=== PATIENT | male | born 1985 | race Caucasian/White ===

== ENCOUNTER 2018-12-28 10:27 | Emergency (ER) | payer OTHER ==
--- NOTE | 2018-12-28 11:03 | EDM.PDOC ---
ED HPI GENERAL MEDICAL PROBLEM - General Chief Complaint: Upper Extremity Injury/Pain Stated Complaint: R SHOULDER INJURY Time Seen by Provider: 12/28/18 11:02 - History of Present Illness INITIAL COMMENTS - FREE TEXT/NARRATIVE: 33-year-old male presents emergency room with right shoulder pain and suspected dislocation. Patient has history of recurrent right shoulder dislocations. This popped out on him last night and he just does not feel right. The patient was seen at the clinic today had x-rays done and was sent down to the emergency room x-rays actually show fairly decent shoulder alignment irregular little bit of laxity but he is certainly in good position. The patient had extensive shoulder reconstruction in 2000. This was to correct frequent subluxation and dislocation. The patient did well after surgery but over time he started having problems again. Right Shoulder Pain Score (Numeric/FACES): 8 - Related Data Allergies Allergy/AdvReac Type Severity Reaction Status Date / Time tree nut [Pecans] Allergy Airway Verified 12/28/18 10:43 Tightness Home Meds: Home Meds . [No Known Home Meds] 12/28/18 [History] Past Medical History - Past Health History Medical/Surgical History: Denies Medical/Surgical History Social & Family History - Tobacco Use Smoking Status *Q: Never Smoker - Caffeine Use Caffeine Use: Reports: None - Recreational Drug Use Recreational Drug Use: No Review of Systems - Review of Systems Review Of Systems: See Below Constitutional: Reports: No Symptoms Respiratory: Reports: No Symptoms Cardiovascular: Reports: No Symptoms GI/Abdominal: Reports: No Symptoms ED EXAM, GENERAL - Physical Exam Exam: See Below Exam Limited By: No Limitations General Appearance: Alert, No Apparent Distress Respiratory/Chest: No Respiratory Distress, Lungs Clear, Normal Breath Sounds Cardiovascular: Regular Rate, Rhythm, No Edema, No Murmur Extremities: Other (Examination of his right shoulder shows no sulcus sign no bulging areas anteriorly consistent with anterior dislocation did review his x- rays that appear to show good alignment of the shoulders. I did try to manipulate shoulder little bit in the patient cannot fully externally rotate shoulder and he will not allow abduction of the upper arm neurovascular status extremities normal) Course - Vital Signs Last Recorded V/S: Last Vital Signs Temp 37.1 C 12/28/18 10:41 Pulse 65 12/28/18 10:41 Resp 15 12/28/18 10:41 BP 131/95 H 12/28/18 10:41 Pulse Ox 94 L 12/28/18 10:41 - Orders/Labs/Meds Orders: Active Orders 24 hr Category Date Time Status Durable Medical Equipment for Discharge [DME for Oth 12/28/18 11:25 Ordered Discharge] [COMM] Stat - Re-Assessments/Exams Free Text/Narrative Re-Assessment/Exam: 12/28/18 11:[address] Nieves, his office will call shortly with a appointment time the patient will be placed in a sling. 12/28/18 12:13 Dr. Nieves's office did get back to us kindly gave him an appointment for at 9:30 in the morning Departure - Departure Time of Disposition: 12:14 Disposition: Home, Self-Care 01 Clinical Impression: Right shoulder injury Clinical Impression: (Ruled Out): Subluxation of shoulder girdle - Discharge Information Referrals: PCP,None [Primary Care Provider] - Kev Roe MD [Physician] - Forms: ED Department Discharge Additional Instructions: Return to the emergency room with any questions problems or worsening symptoms. Wear the sling at all times.. Follow-up with Dr. Roe today, orthopedic surgeon, at 9:30 in the morning. - My Orders Last 24 Hours: My Active Orders 12/28/18 11:25 Durable Medical Equipment for Discharge [DME for Discharge] [COMM] Stat - Assessment/Plan Last 24 Hours: My Active Orders 12/28/18 11:25 Durable Medical Equipment for Discharge [DME for Discharge] [COMM] Stat
== END 2018-12-28 12:35 | disposition home or self-care (01) ==
LOC: JD.ED 10:27
DX: S49.91XA Unspecified injury of right shoulder and upper arm, initial encounter (principal); Z91.018 Allergy to other foods; X58.XXXA Exposure to other specified factors, initial encounter; Y93.75 Activity, martial arts
CPT/HCPCS: 99282; 99283

== ENCOUNTER 2022-02-08 21:47 | Emergency (ER) | payer MEDICAID, OTHER ==
[2022-02-08] MEDS ORDERED: diphenhydrAMINE 50 MG/ML SDV IM ONE (22:23)
[2022-02-08] MEDS ORDERED: HYDROmorphone 1 MG/ML Syringe IM ONE (22:23)
[2022-02-08] MEDS ORDERED: Ondansetron 4 MG Tab.DIS PO ONE (22:23)
[2022-02-08] MEDS ORDERED: Ketorolac 60 MG/2 ML SDV IM ONE (23:00)
== END 2022-02-09 00:40 | disposition home or self-care (01) ==
LOC: JD.ED 21:47
DX: S09.90XA Unspecified injury of head, initial encounter (principal); Z91.018 Allergy to other foods; W00.0XXA Fall on same level due to ice and snow, initial encounter
CPT/HCPCS: 70450; 96372; 99283; A9270; J1170; J1200; J1885

== ENCOUNTER 2022-09-27 22:40 | Emergency (ER) | payer BC, MEDICAID ==
[2022-09-27] MEDS ORDERED: Morphine 4 MG/ML Syringe IVPUSH ONE (22:56)
[2022-09-27] MEDS ORDERED: Sodium Chloride 0.9% 1,000 ML IV ONE (22:56)
[2022-09-27] MEDS ORDERED: Ondansetron 4 MG/2 ML SDV IVPUSH ONE (22:56)
[2022-09-27 23:12] LABS: BASOPHILS ABSOLUTE AUTO 0.03 K/mm3 (0.01-0.08); BASOPHILS PERCENT AUTO 0.4 % (0.1-1.2); EOSINOPHILS ABSOLUTE AUTO 0.17 K/mm3 (0.04-0.54); HEMATOCRIT 45.7 % (40.1-51.0); HEMOGLOBIN 16.3 gm/dl (13.7-17.5); IMMATURE GRAN ABSOLUTE AUTO 0.05 K/mm3 (0.00-0.10); IMMATURE GRAN PERCENT AUTO 0.6 % (<=1.0); LYMPHOCYTES ABSOLUTE AUTO 2.03 K/mm3 (1.32-3.57); LYMPHOCYTES PERCENT AUTO 24.4 % (21.8-53.1); MEAN CORPUSCULAR HGB CONC 35.7 g/dl (32.2-35.5); MEAN PLATELET VOLUME 9.9 fl (9.4-12.3); MONOCYTES ABSOLUTE AUTO 0.83 K/mm3 (0.30-0.82); NEUTROPHILS ABSOLUTE AUTO 5.21 K/mm3 (1.78-5.38); NEUTROPHILS PERCENT AUTO 62.6 % (34.0-67.9); PLATELET COUNT,PLT 278 K/mm3 (163-337); RED BLOOD CELL COUNT 5.44 M/mm3 (4.63-6.08); WHITE BLOOD CELL COUNT,WBC 8.32 K/mm3 (4.23-9.07)
[2022-09-27 23:33] LABS: A/G RATIO 1.1 (1-2); ALBUMIN 4.4 g/dl (3.4-5.0); BILIRUBIN TOTAL 0.5 mg/dL (0.2-1.0); BUN/CREATININE RATIO 13.6 (14-18); CREATININE 1.1 mg/dL (0.7-1.3); EST CRCL DRUG DOSING (CG) 98.96 mL/min; PROTEIN TOTAL,TP 8.3 g/dl (6.4-8.2)
[2022-09-27] MEDS ORDERED: HYDROmorphone 0.5 MG/0.5 ML Syringe IVPUSH ONE (23:49)
[2022-09-28] MEDS ORDERED: HYDROmorphone 0.5 MG/0.5 ML Syringe IVPUSH ONE (01:27)
== END 2022-09-28 02:20 | disposition home or self-care (01) ==
LOC: JD.ED 22:40
DX: K81.9 Cholecystitis, unspecified (principal); Z91.018 Allergy to other foods
CPT/HCPCS: 36415; 76705; 80053; 83690; 85025; 96361; 96374; 96375; 96376; 99284; J1170; J2270; J2405; J7030

== ENCOUNTER 2022-09-28 13:13 | Observation (INO) | payer BC ==
[2022-09-28] MEDS: Lactated Ringers 1,000 ML IV SCH ×2 (13:35→15:21)
[2022-09-28] MEDS ORDERED: Lidocaine 1% 30 ML SDV ONE (14:47)
[2022-09-28] MEDS ORDERED: Bupivacaine 0.5%/EPINEPHrine 1:200,000 50 ML MDV ONE (14:47)
[2022-09-28] MEDS ORDERED: Propofol 200 MG/20 ML SDV ONE (15:21)
[2022-09-28] MEDS ORDERED: fentaNYL 250 MCG/5 ML SDV ONE (15:22)
[2022-09-28] MEDS ORDERED: Midazolam 1 MG/ML 2 ML SDV ONE (15:22)
[2022-09-28] MEDS ORDERED: Lidocaine 1% 6 ML ONE (15:29)
[2022-09-28] MEDS ORDERED: Succinylcholine 200 MG/10 ML MDV ONE ×2 (15:30→17:38)
[2022-09-28] MEDS ORDERED: Gabapentin 300 MG Cap PO ONE (15:30)
[2022-09-28] MEDS ORDERED: Rocuronium 50 MG/5 ML Vial ONE (15:30)
[2022-09-28] MEDS ORDERED: cefOXitin 2 GM in Sodium Chloride 0.9% 50 ML IV ONE (15:30)
[2022-09-28] MEDS ORDERED: Acetaminophen 325 MG Tab PO ONE (15:30)
[2022-09-28] MEDS ORDERED: HYDROmorphone 0.5 MG/0.5 ML Syringe IVPUSH ONE (15:30)
[2022-09-28] MEDS ORDERED: Dexmedetomidine 200 MCG/2 ML SDV ONE (15:44)
[2022-09-28] MEDS ORDERED: fentaNYL 100 MCG/2 ML SDV IVPUSH PRN (16:20)
[2022-09-28] MEDS ORDERED: HYDROmorphone 0.5 MG/0.5 ML Syringe IVPUSH PRN (16:20)
[2022-09-28] MEDS ORDERED: Ondansetron 4 MG/2 ML SDV ONE (16:27)
[2022-09-28] MEDS ORDERED: Dexamethasone 4 MG/ML 5 ML MDV ONE (16:28)
[2022-09-28] MEDS ORDERED: Neostigmine Methylsulfate 10 MG/10 ML MDV ONE (16:50)
[2022-09-28] MEDS ORDERED: Ketorolac 30 MG/ML SDV ONE (17:50)
[2022-09-28] MEDS ORDERED: Ondansetron 4 MG/2 ML SDV IVPUSH ONE (20:30)
[2022-09-28] MEDS ORDERED: Promethazine 50 MG in Sodium Chloride 0.9% 50 ML IV PRN (21:09)
[2022-09-28 21:22] LABS: BASOPHILS ABSOLUTE AUTO 0.01 K/mm3 (0.01-0.08); BASOPHILS PERCENT AUTO 0.1 % (0.1-1.2); EOSINOPHILS ABSOLUTE AUTO 0.01 K/mm3 (0.04-0.54); EOSINOPHILS PERCENT AUTO 0.1 (0.8-7.0); HEMATOCRIT 45.3 % (40.1-51.0); HEMOGLOBIN 15.8 gm/dl (13.7-17.5); IMMATURE GRAN ABSOLUTE AUTO 0.05 K/mm3 (0.00-0.10); IMMATURE GRAN PERCENT AUTO 0.3 % (<=1.0); LYMPHOCYTES ABSOLUTE AUTO 1.03 K/mm3 (1.32-3.57); LYMPHOCYTES PERCENT AUTO 6.4 % (21.8-53.1); MEAN CORPUSCULAR HEMOGLOBIN 30.2 pg (25.7-32.2); MEAN CORPUSCULAR HGB CONC 34.9 g/dl (32.2-35.5); MEAN CORPUSCULAR VOLUME 86.5 fl (79.0-92.2); MEAN PLATELET VOLUME 10.2 fl (9.4-12.3); MONOCYTES ABSOLUTE AUTO 0.35 K/mm3 (0.30-0.82); MONOCYTES PERCENT AUTO 2.2 % (5.3-12.2); NEUTROPHILS ABSOLUTE AUTO 14.75 K/mm3 (1.78-5.38); NEUTROPHILS PERCENT AUTO 90.9 % (34.0-67.9); PLATELET COUNT,PLT 308 K/mm3 (163-337); RED BLOOD CELL COUNT 5.24 M/mm3 (4.63-6.08)
[2022-09-28 21:42] LABS: A/G RATIO 1.1 (1-2); BILIRUBIN TOTAL 0.8 mg/dL (0.2-1.0); BUN/CREATININE RATIO 12.3 (14-18); CALCIUM 8.9 mg/dL (8.5-10.1); CREATININE 1.3 mg/dL (0.7-1.3); EST CRCL DRUG DOSING (CG) 83.74 mL/min; PROTEIN TOTAL,TP 7.6 g/dl (6.4-8.2)
[2022-09-28 21:45] LABS: LACTIC ACID 2.6 mmol/L (0.4-2.0)
[2022-09-28 22:16] LABS: ANION GAP 15.5 (5-15); POTASSIUM,K 3.5 mEq/L (3.5-5.1)
[2022-09-29] MEDS ORDERED: Acetaminophen/oxyCODONE 325-5 MG Tab PO PRN (01:28)
[2022-09-29] MEDS: Ketorolac 30 MG/ML SDV IVPUSH PRN ×2 (03:38→09:13)
[2022-09-29] MEDS ORDERED: Promethazine 50 MG in Sodium Chloride 0.9% 50 ML IV PRN (07:02)
== END 2022-09-29 10:10 | disposition home or self-care (01) ==
LOC: JD.SDS 13:13 → JD.ICU 18:49 → JD.SDS 09-29 08:14 → JD.ICU 09-29 08:15
PROVIDERS: ADMIT Surgery; ATTEND Surgery
DX: K80.12 Calculus of gallbladder with acute and chronic cholecystitis without obstruction (principal); R55 Syncope and collapse; I95.9 Hypotension, unspecified; K21.9 Gastro-esophageal reflux disease without esophagitis; F41.0 Panic disorder [episodic paroxysmal anxiety]; Z79.899 Other long term (current) drug therapy; Z87.891 Personal history of nicotine dependence
CPT/HCPCS: 36415; 47562; 70450; 80053; 83605; 84484; 85025; 87040; A9270; J0330; J0694; J1100; J1170; J1885; J2250; J2405; J2704; J2710; J3010; J3490; J7120; 00790; 99140

== ENCOUNTER 2024-03-18 06:15 | Day surgery (SDC) | payer BC ==
[~2024-03-18 06:15] MED LIST: Lactated Ringers 1,000 ML ONE; Midazolam 1 MG/ML 2 ML SDV ONE; Propofol 200 MG/20 ML SDV ONE; Sodium Chloride 0.9% 10 ML Syringe FLUSH PRN; Sodium Chloride 0.9% 10 ML Syringe FLUSH SCH; ceFAZolin 2 GM Vial ONE; fentaNYL 100 MCG/2 ML SDV ONE
[2024-03-18] MEDS: Lactated Ringers 1,000 ML IV SCH (06:30)
[2024-03-18] MEDS: oxyCODONE ER 10 MG TAB.ER PO SCH (06:39)
[2024-03-18] MEDS: Acetaminophen 325 MG Tab PO SCH (06:39)
[2024-03-18] MEDS: Pregabalin 25 MG Cap PO SCH (06:39)
[2024-03-18] MEDS ORDERED: ceFAZolin 2 GM Vial ONE (06:44)
[2024-03-18] MEDS ORDERED: Ondansetron 4 MG/2 ML SDV IVPUSH PRN (06:46)
[2024-03-18] MEDS ORDERED: Midazolam 1 MG/ML 2 ML SDV ONE (06:51)
[2024-03-18] MEDS ORDERED: Ropivacaine 0.5% 5 MG/ML 30 ML SDV ONE (07:22)
[2024-03-18] MEDS ORDERED: dexmedeTOMIDine HCl 200 MCG/2 ML SDV ONE (07:23)
[2024-03-18] MEDS ORDERED: Dexamethasone 4 MG/ML 5 ML MDV ONE (07:26)
[2024-03-18] MEDS ORDERED: Ketorolac 30 MG/ML SDV ONE (07:27)
[2024-03-18] MEDS ORDERED: Ondansetron 4 MG/2 ML SDV ONE ×2 (07:27→11:44)
[2024-03-18] MEDS ORDERED: Propofol 200 MG/20 ML SDV ONE (07:46)
[2024-03-18] MEDS: Morphine 8 MG, EPINEPHrine 0.3 MG, Cefuroxime 750 MG, Ketorolac 30 MG, Sodium Chloride ... PRN (08:15)
[2024-03-18] MEDS: VANCOmycin 1 GM SDV ONE (08:21)
[2024-03-18] MEDS: Tranexamic Acid 1,000 MG/10 ML Vial ONE (08:21)
[2024-03-18] MEDS: HYDROmorphone 0.5 MG/0.5 ML Syringe IVPUSH PRN (09:15)
[2024-03-18] MEDS ORDERED: Lidocaine 1% 5 ML VIAL ONE (10:15)
[2024-03-18] MEDS: oxyCODONE 5 MG Tab PO PRN (10:17)
== END 2024-03-18 13:45 | disposition home or self-care (01) ==
LOC: JD.SDS 06:15
PROVIDERS: ATTEND Orthopaedic Surgery
DX: M17.11 Unilateral primary osteoarthritis, right knee (principal); M22.2X1 Patellofemoral disorders, right knee
CPT/HCPCS: 0055T; 27599; 64447; 73560; 97110; 97116; 97162; A9270; C1713; C1776; J0171; J0690; J0697; J1100; J1885; J2250; J2272; J2405; J2704; J2795; J7120; 01400; J3010; J3490